=== PATIENT | female | born 1960 | race Caucasian/White ===

== ENCOUNTER 2016-11-01 19:12 | Emergency (ER) | payer MEDICARE, MEDICAID | END 2016-11-01 20:34 | disposition left against medical advice (07) | LOC: UCCORT 19:12 | DX: M54.2 Cervicalgia (principal); Z53.21 Procedure and treatment not carried out due to patient leaving prior to being seen by health care provider ==

== ENCOUNTER 2018-02-21 09:50 | Emergency (ER) | payer MEDICARE, MEDICAID ==
[2018-02-21 10:15] VITALS: BP 116/79
--- NOTE | 2018-02-21 10:42 | RAD ---
INDICATION: Foot hit by soccer ball COMPARISON: None TECHNIQUE: AP, lateral, and oblique views were obtained. FINDINGS: There is no acute bony change. There is osteophytes about the tarsometatarsal articulations. There are heel spurs. There is mild soft tissue swelling over the dorsum of the forefoot. IMPRESSION: MILD OSTEOARTHRITIC ARTHRITIS. NO ACUTE FRACTURE.
--- NOTE | 2018-02-21 10:53 | UC ---
Lower Extremity/Ankle HPI - HPI Summary HPI Summary: Pt c/o right foot pain, s/p two year old grandson bouncing soccer ball on dorsal aspect 5 days ago. Pt has hx of chronic sciatica - History of Current Complaint Chief Complaint: UCLowerExtremity Stated Complaint: RT FOOT COMP Time Seen by Provider: 02/21/18 10:13 Hx Obtained From: Patient ?: No Onset/Duration: Sudden Onset, Lasting Days, Still Present Severity Initially: Moderate Severity Currently: Severe Pain Intensity: 10 Aggravating Factor(s): Standing, Ambulation Alleviating Factor(s): Nothing Able to Bear Weight: Yes - minimal - Risk Factors Gout Risk Factors: Age Over 40 DVT Risk Factors: Negative Septic Arthritis Risk Factor: Negative - Allergies/Home Medications Allergies/Adverse Reactions: Allergies Allergy/AdvReac Type Severity Reaction Status Date / Time codeine Allergy Unknown Verified 02/21/18 10:13 Reaction Details Penicillins Allergy Rash Verified 02/21/18 10:13 Home Medications: Home Medications Acetaminophen [Pain Reliever] 1,000 mg PO Q6H 02/21/18 [History Confirmed ] Aspirin [Aspir-Low] 81 mg PO DAILY 02/21/18 [History Confirmed 02/21/18] PMH/Surg Hx/FS Hx/Imm Hx Previously Healthy: Yes - Surgical History Surgical History: Yes Surgery Procedure, Year, and Place: Cholecystectomy, 2013; Uterine Ablation; bilat eye, appy, lower lubar surg, neck, , tubaligation - Family History Known Family History: Positive: Cardiac Disease - Social History Occupation: Retired Lives: With Family Alcohol Use: Rare Substance Use Type: None Smoking Status (MU): Light Every Day Tobacco Smoker Type: Cigarettes Amount Used/How Often: 1/3 PPD Length of Time of Smoking/Using Tobacco: 5 Years Have You Smoked in the Last Year: Yes Household Exposure Type: Cigarettes Review of Systems Constitutional: Negative Skin: Negative Eyes: Negative ENT: Negative Respiratory: Negative Cardiovascular: Negative Gastrointestinal: Negative Genitourinary: Negative Motor: Negative Neurovascular: Other - "chronic neuritis" Musculoskeletal: Decreased ROM - right foot, Edema - right foot Neurological: Negative Psychological: Negative Is Patient Immunocompromised?: No All Other Systems Reviewed And Are Negative: Yes Physical Exam Triage Information Reviewed: Yes Appearance: Well-Appearing Vital Signs: Initial Vital Signs Temp 99.1 F 02/21/18 10:10 Pulse 88 02/21/18 10:10 Resp 18 02/21/18 10:10 BP 116/79 02/21/18 10:10 Pulse Ox 99 02/21/18 10:10 Vital Signs Reviewed: Yes Eye Exam: Normal ENT Exam: Normal Neck exam: Normal Respiratory Exam: Normal Respiratory: Positive: No respiratory distress Musculoskeletal Exam: Other Musculoskeletal: Positive: ROM Limited @ - right foot Neurological Exam: Normal Psychological Exam: Normal Skin Exam: Normal Diagnostics - Radiology No standard instances Radiology Interpretation Completed By: Radiologist - IMPRESSION: MILD OSTEOARTHRITIC ARTHRITIS. NO ACUTE FRACTURE. Lower Extremity Course/Dx - Differential Dx/Diagnosis Differential Diagnosis/HQI/PQRI: Contusion, Fracture (Closed), Sprain, Strain Provider Diagnoses: right foot pain. right foot contusion. right foot neuritis Discharge - Sign-Out/Discharge Documenting (check all that apply): Patient Departure - Discharge Plan Condition: Stable Disposition: HOME Prescriptions: predniSONE TAB* [Deltasone 10 MG TAB*] 30 mg PO DAILY #12 tab Patient Education Materials: Arthralgia (ED) Referrals: Cecilia Wilde MD [Primary Care Provider] - If Needed Julianna MADRID,Wili Abbott [Medical Doctor] - As Soon As Possible Additional Instructions: Please follow up with your PCP as needed and your neurologist as soon as possible. - Billing Disposition and Condition Condition: STABLE Disposition: Home
== END 2018-02-21 11:16 | disposition home or self-care (01) ==
LOC: UCCORT 09:50
DX: S90.31XA Contusion of right foot, initial encounter (principal); M79.2 Neuralgia and neuritis, unspecified; M54.30 Sciatica, unspecified side; M79.671 Pain in right foot; F17.210 Nicotine dependence, cigarettes, uncomplicated; Z79.82 Long term (current) use of aspirin; Z88.5 Allergy status to narcotic agent; Z88.0 Allergy status to penicillin; Y92.9 Unspecified place or not applicable; W20.8XXA Other cause of strike by thrown, projected or falling object, initial encounter
CPT/HCPCS: 99213; G0463

== ENCOUNTER 2018-06-11 14:06 | Emergency (ER) | payer MEDICAID, MEDICARE ==
[2018-06-11 14:30] VITALS: BP 112/62
--- NOTE | 2018-06-11 14:56 | UC ---
Skin Complaint HPI - HPI Summary HPI Summary: 57 year old female presents with sudden onset of painful, pruritic rash to her upper back. States it woke her from her sleep yesterday morning. Describes the pain as an intense burning. Worsens with any kind of touch including bra and shirt. She is noted some blisters that have opened and drained a clear drainage. Denies fever, chills, purulent drainage. Reports she did have chickenpox as a child. She also reports she is recovering for recent bronchitis. - History of Current Complaint Chief Complaint: UCSkin Time Seen by Provider: 06/11/18 14:35 Stated Complaint: SKIN COMPLAINT Hx Obtained From: Patient ?: No Onset/Duration: Sudden Onset, Lasting Days - 2 Current Severity: Severe Pain Intensity: 7 Location: Other - Upper back Character: Pruritus, Painful Aggravating Factor(s): Clothing, Touch Alleviating Factor(s): Nothing Associated Signs & Symptoms: Positive: Negative - Allergy/Home Medications Allergies/Adverse Reactions: Allergies Allergy/AdvReac Type Severity Reaction Status Date / Time codeine Allergy Unknown Verified 02/21/18 10:13 Reaction Details erythromycin base Allergy Rash Verified 06/11/18 14:26 Penicillins Allergy Rash Verified 02/21/18 10:13 Tetracyclines Allergy Rash Verified 06/11/18 14:26 Home Medications: Home Medications Gabapentin CAP(*) [Neurontin 300 CAP(*)] 600 mg PO TID 06/11/18 [History Confirmed 06/11/18] Naproxen [Naproxen 500 mg tab] 500 mg PO BID 06/11/18 [History Confirmed ] Review of Systems Constitutional: Negative Skin: Rash - See HPI Eyes: Negative ENT: Negative Respiratory: Negative Cardiovascular: Negative Gastrointestinal: Negative Is Patient Immunocompromised?: No All Other Systems Reviewed And Are Negative: Yes PMH/Surg Hx/FS Hx/Imm Hx - Additional Past Medical History Additional PMH: Chronic pain syndrome Previously Healthy: Yes Cardiovascular History: Hypertension Psychological History: Depression - Surgical History Surgical History: Yes Surgery Procedure, Year, and Place: Cholecystectomy, 2014; Uterine Ablation; bilat eye, appy, lower lubar surg, neck, , tubaligation - Family History Known Family History: Positive: None, Cardiac Disease - Social History Occupation: Employed Full-time Lives: With Family Alcohol Use: Rare Substance Use Type: None Smoking Status (MU): Light Every Day Tobacco Smoker Type: Cigarettes Amount Used/How Often: 1/3 PPD Length of Time of Smoking/Using Tobacco: 5 Years Have You Smoked in the Last Year: Yes Household Exposure Type: Cigarettes Physical Exam Triage Information Reviewed: Yes Appearance: Well-Appearing, No Pain Distress, Well-Nourished Vital Signs: Initial Vital Signs Temp 98.8 F 06/11/18 14:21 Pulse 81 06/11/18 14:21 Resp 19 06/11/18 14:21 BP 112/62 06/11/18 14:21 Pulse Ox 100 06/11/18 14:21 Neck: Positive: Supple, Nontender, No Lymphadenopathy Respiratory: Positive: Lungs clear, Normal breath sounds, No respiratory distress Cardiovascular: Positive: RRR, No Murmur Neurological: Positive: Alert Skin: Positive: rashes - Multiple discrete red raised vesicular lesions with crusting to central upper back. Lesions cross central line however are more prominent to right upper back. Very painful to touch. Course/Dx - Course Course Of Treatment: 57 year old female with onset of painful, pruritic rash to upper back 2 days ago. Exam reveals multiple discrete vesicual lesions with crusting to upper back that are prodominantly on the right side however do cross the central line. The appearance is atypical for shingles however her history and description of the pain present with the rash is very suggestive of a herpes zoster. Will treat with valacyclovir TID x 7 days. She is to follow up with her PCP within 5 days for recheck. Warning symptoms reviewed. Verbalizes understanding and agrees with POC. - Diagnoses Provider Diagnoses: Herpes zoster Discharge - Sign-Out/Discharge Documenting (check all that apply): Patient Departure All imaging exams completed and their final reports reviewed: No Studies - Discharge Plan Condition: Stable Disposition: HOME Prescriptions: Valacyclovir HCl [Valacyclovir] 1,000 mg PO TID #21 tablet Patient Education Materials: Shingles (ED) Referrals: Cecilia Wilde MD [Primary Care Provider] - 5 Days (Follow up within 5 days for recheck of symptoms) Additional Instructions: Your rash is a little atypical in presentation however the blistering, painful history you are providing makes this suspicious for shingles. Start valacyclovir 1 tab every 8 hours for 7 days. This is not a cure for shingles but is used to help minimize symptoms and shorten the duration of symptoms. It may still take several weeks for this to completely resolve. Although it is rare, be aware that in some cases the pain from shingles can persist even after the rash has subsided. Use your naproxen according to directions for pain. Follow up with your primary care provider within 5 days for recheck of symptoms. Seek immediate medical attention if you develop fever greater than 100.5 F, have redness that spreads, there is pus draining for the lesions, or any worsening of symptoms. - Billing Disposition and Condition Condition: STABLE Disposition: Home - Attestation Statements Provider Attestation: Per institutional requirements, I have reviewed the chart, however, I was not consulted specifically or made aware of this patient by the midlevel provider. I did not personally evaluate, interact with , or disposition this patient.
== END 2018-06-11 15:03 | disposition home or self-care (01) ==
LOC: UCCORT 14:06
DX: B02.9 Zoster without complications (principal); G89.4 Chronic pain syndrome; I10 Essential (primary) hypertension; F17.210 Nicotine dependence, cigarettes, uncomplicated; Z88.0 Allergy status to penicillin; Z88.1 Allergy status to other antibiotic agents; Z88.5 Allergy status to narcotic agent
CPT/HCPCS: 99212; G0463

== ENCOUNTER 2019-06-17 09:49 | Emergency (ER) | payer MEDICARE ==
[2019-06-17 10:29] VITALS: BP 126/77
--- NOTE | 2019-06-17 11:05 | UC ---
Throat Pain/Nasal Dionte HPI - HPI Summary HPI Summary: 58-year-old female presents with 2 day history of nasal congestion, sore throat , hoarse voice, bilateral ear fullness, and dry nonproductive cough. She is also reporting approximately 5 days of dysuria, vaginal itching, and some white vaginal discharge. States she completed her course of cephalexin approximately one week ago for an eye infection. Patient is a smoker. Denies fever, chills, dysphagia, chest pain, shortness of breath, abdominal pain, back or flank pain, nausea, vomiting, frequency, urgency, or hematuria. - History of Current Complaint Chief Complaint: UCRespiratory Stated Complaint: COUGH,CHEST CONGESTION,URINARY Time Seen by Provider: 06/17/19 10:53 Hx Obtained From: Patient Pain Intensity: 10 - Allergies/Home Medications Allergies/Adverse Reactions: Allergies Allergy/AdvReac Type Severity Reaction Status Date / Time codeine Allergy Unknown Verified 06/17/19 10:18 Reaction Details erythromycin base Allergy Rash Verified 06/17/19 10:18 Penicillins Allergy Rash Verified 06/17/19 10:18 Tetracyclines Allergy Rash Verified 06/17/19 10:18 Home Medications: Home Medications Cephalexin CAP* [Keflex 500 CAP*] 1 tab PO TID 06/17/19 [History Confirmed 06/17] Gabapentin CAP(*) [Neurontin 100 mg CAP(*)] 100 mg PO DAILY 06/17/19 [History Confirmed 06/17/19] Valacyclovir HCl [Valacyclovir] 1,000 mg PO TID PRN 06/17/19 [History Confirmed 06/17/19] PMH/Surg Hx/FS Hx/Imm Hx Cardiovascular History: Hypertension - Surgical History Surgical History: Yes Surgery Procedure, Year, and Place: Cholecystectomy, 2013; Uterine Ablation; bilat eye, appy, lower lubar surg, neck, , tubaligation - Family History Known Family History: Positive: Cardiac Disease - Social History Occupation: Disabled Lives: With Family Alcohol Use: Rare Substance Use Type: None Smoking Status (MU): Light Every Day Tobacco Smoker Type: Cigarettes Amount Used/How Often: 1/2 PPD Length of Time of Smoking/Using Tobacco: 5 Years Have You Smoked in the Last Year: Yes Household Exposure Type: Cigarettes Review of Systems All Other Systems Reviewed And Are Negative: Yes Physical Exam - Summary Physical Exam Summary: GENERAL APPEARANCE: Alert and cooperative adult female who appears to be in no acute distress. EYES: Conjunctiva clear. No drainage. EARS: External auditory canals and tympanic membranes clear, hearing grossly intact. NOSE: Mild-moderate nasal congestion. No nasal discharge. THROAT: Pharyngeal erythema with postnasal drip. No tonsilar inflammation, swelling, exudate, or lesions. Uvula midline. NECK: Neck supple, non-tender without lymphadenopathy. CARDIAC: Normal S1 and S2. No S3, S4 or murmurs. Rhythm is regular. There is no peripheral edema, cyanosis or pallor. Extremities are warm and well perfused. Capillary refill is less than 2 seconds. Peripheral pulses intact. LUNGS: Clear to auscultation without rales, rhonchi, wheezing or diminished breath sounds. Dry nonproductive cough. ABDOMEN: Positive bowel sounds. Soft, nondistended, nontender. No guarding or rebound. No masses or hepatosplenomegally. MUSKULOSKELETAL: ROM intact to all extremities. No joint erythema or tenderness. Normal muscular development. Normal gait. SKIN: Skin normal color, texture and turgor with no lesions or eruptions. Triage Information Reviewed: Yes Vital Signs: Initial Vital Signs Temp 98.6 F 06/17/19 10:23 Pulse 92 06/17/19 10:23 Resp 15 06/17/19 10:23 BP 126/77 06/17/19 10:23 Pulse Ox 100 06/17/19 10:23 Vital Signs Reviewed: Yes Throat Pain/Nasal Course/Dx - Course Course Of Treatment: 58-year-old female presents with 2 day history of nasal congestion, sore throat , hoarse voice, bilateral ear fullness, and dry nonproductive cough. She is also reporting approximately 5 days of dysuria, vaginal itching, and some white vaginal discharge. States she completed her course of cephalexin approximately one week ago for an eye infection. Patient is a smoker. Denies fever, chills, dysphagia, chest pain, shortness of breath, abdominal pain, back or flank pain, nausea, vomiting, frequency, urgency, or hematuria. Afebrile. Vital signs stable. Patient had mild to moderate nasal congestion, pharyngeal erythema with postnasal drip, no tonsillar swelling or exudate, no cervical lymphadenopathy, clear bilateral breath sounds, dry nonproductive cough, and otherwise unremarkable exam. [id number] urinalysis showed trace leukocytes but otherwise within normal limits. Urine culture pending. Reviewed results with the patient. I discussed with the patient that with her recent antibiotic use and reports a vaginal discharge I would recommend treating for a vaginal yeast infection with [id number] Monistat pending urine culture results to which she is agreeable. I have also recommended symptomatic treatment for a viral upper respiratory infection. She is to follow-up with her primary care provider in 3-5 days if symptoms are not improving. Anticipatory guidance and warning symptoms were reviewed the patient. Verbalizes understanding and agrees with plan of care. - Differential Dx/Diagnosis Differential Diagnosis/HQI/PQRI: Influenza, Sinusitis, URI Provider Diagnosis: Viral URI with cough, Dysuria Discharge ED - Sign-Out/Discharge Documenting (check all that apply): Patient Departure All imaging exams completed and their final reports reviewed: No Studies - Discharge Plan Condition: Stable Disposition: HOME Patient Education Materials: Upper Respiratory Infection (ED), Dysuria (ED) Referrals: Maryjane Teague MD [Primary Care Provider] - 3 Days (If no improvement in symptoms. ) Additional Instructions: Your history and exam are consistent with a viral upper respiratory infection. Viral infections do not respond to antibiotics and are limited to the treatment of symptoms. Viral infections typically run their course in 7-10 days. Drink plenty of fluids to avoid dehydration especially if you are running any fever. Use a saline rinse kit such as Neti Pot or NeilMed at least twice a day to help thin secretions and promote drainage of the sinuses. Use over the counter fluticasone (Flonase) nasal spray 2 sprays each nostril once daily. Take over the counter acetaminophen (Tylenol) or ibuprofen (Advil, Motrin) according to directions as needed for pain or fever. Use salt water gargles several times a day if you have a sore throat. You may also use Chloraseptic spray or Cepacol lonzenges according to directions which contain a numbing medication and can provide some temporary relief from your sore throat. The urine test performed in the clinic today showed a trace amount of white blood cells which could be suggestive of a urinary tract infection however with the recently being on antibiotics and having some discharge I would recommend treating with [id number] Monistat for a possible yeast infection while we await the results of the urine culture. Follow up with your primary care provider in 3-5 days if symptoms persist. Seek immediate medical attention in the emergency room if you have fever greater than 100.5 F despite taking acetaminophen or ibuprofen, have chest pain , difficulty breathing, are unable to swallow, or have any worsening of symptoms. - Billing Disposition and Condition Condition: STABLE Disposition: Home
== END 2019-06-17 11:41 | disposition home or self-care (01) ==
LOC: UCCORT 09:49
DX: J06.9 Acute upper respiratory infection, unspecified (principal); R30.0 Dysuria; I10 Essential (primary) hypertension; Z88.1 Allergy status to other antibiotic agents; Z88.5 Allergy status to narcotic agent; Z88.0 Allergy status to penicillin; F17.210 Nicotine dependence, cigarettes, uncomplicated
CPT/HCPCS: 81003; 87086; 99212; G0463

== ENCOUNTER 2019-08-05 16:05 | Emergency (ER) | payer MEDICARE ==
[2019-08-05 16:14] VITALS: BP 106/69
--- NOTE | 2019-08-05 17:00 | UC ---
Respiratory Complaint HPI - HPI Summary HPI Summary: Pt presents with c/o cough, malaise,chills, nasla congestion and diffuse, itchy rash X 4 days. - History of Current Complaint Chief Complaint: UCRespiratory Stated Complaint: RASH/CHEST CONGESTION Time Seen by Provider: 08/05/19 16:41 Hx Obtained From: Patient ?: No Onset/Duration: Sudden Onset, Lasting Days, Still Present, Worse Since - onset Timing: Constant Severity Initially: Mild Severity Currently: Severe Pain Intensity: 10 Character: Cough: Productive Aggravating Factors: Deep Breaths, Recumbent Position Alleviating Factors: Nothing Associated Signs And Symptoms: Positive: Fever, Chills, URI, Nasal Congestion - Risk Factors Pulmonary Embolism Risk Factors: Smoking Cardiac Risk Factors: Smoking Pseudomonas Risk Factors: Negative Tuberculosis Risk Factors: Smoking - Allergies/Home Medications Allergies/Adverse Reactions: Allergies Allergy/AdvReac Type Severity Reaction Status Date / Time codeine Allergy Unknown Verified 08/05/19 16:13 Reaction Details erythromycin base Allergy Rash Verified 08/05/19 16:13 Penicillins Allergy Rash Verified 08/05/19 16:13 Tetracyclines Allergy Rash Verified 08/05/19 16:13 Home Medications: Home Medications diPHENhydraMINE PO* [Benadryl PO 25 MG TAB*] 25 mg PO Q6H PRN 08/05/19 [History Confirmed 08/05/19] PMH/Surg Hx/FS Hx/Imm Hx Previously Healthy: Yes Cardiovascular History: Cardiac Disease Respiratory History: Other - pt is a heavy every day smoker - Surgical History Surgical History: Yes Surgery Procedure, Year, and Place: Cholecystectomy, 2013; Uterine Ablation; bilat eye, appy, lower lubar surg, neck, , tubaligation - Family History Known Family History: Positive: Cardiac Disease - Social History Occupation: Disabled Lives: With Family Alcohol Use: Rare Substance Use Type: None Smoking Status (MU): Heavy Every Day Tobacco Smoker Type: Cigarettes Amount Used/How Often: 1/2 PPD Length of Time of Smoking/Using Tobacco: 10 Years Have You Smoked in the Last Year: Yes Household Exposure Type: Cigarettes Review of Systems All Other Systems Reviewed And Are Negative: Yes Constitutional: Positive: Fever, Chills, Fatigue Skin: Positive: Rash Eyes: Positive: Negative ENT: Positive: Sinus Congestion Respiratory: Positive: Shortness Of Breath, Cough Cardiovascular: Positive: Negative Gastrointestinal: Positive: Negative Genitourinary: Positive: Negative Motor: Positive: Negative Neurovascular: Positive: Negative Musculoskeletal: Positive: Myalgia Neurological: Positive: Headache Psychological: Positive: Negative Is Patient Immunocompromised?: No Physical Exam Triage Information Reviewed: Yes Appearance: Ill-Appearing Vital Signs: Initial Vital Signs Temp 98.4 F 08/05/19 16:07 Pulse 92 08/05/19 16:07 Resp 20 08/05/19 16:07 BP 106/69 08/05/19 16:07 Pulse Ox 99 08/05/19 16:07 Vital Signs Reviewed: Yes Eye Exam: Normal ENT: Positive: Nasal congestion Dental Exam: Normal Neck exam: Normal Respiratory: Positive: Decreased breath sounds, Wheezing Cardiovascular Exam: Normal Musculoskeletal Exam: Normal Neurological Exam: Normal Psychological Exam: Normal Skin: Positive: Rashes - diffuse, erythematous, macular papular rash Respiratory Course/Dx - Differential Dx/Diagnosis Differential Diagnosis/HQI/PQRI: Bronchitis, Exacerbation Of COPD, Influenza Provider Diagnosis: Bronchitis, COPD exacerbation, Rash, Itchy skin Discharge ED - Sign-Out/Discharge Documenting (check all that apply): Patient Departure All imaging exams completed and their final reports reviewed: No Studies - Discharge Plan Condition: Stable Disposition: HOME Prescriptions: Benzonatate CAP* [Tessalon 100 MG CAP*] 100 mg PO Q8H PRN #30 cap PRN Reason: Cough Cetirizine* [ZyrTEC 10 MG TAB*] 10 mg PO DAILY #10 tab predniSONE TAB* [Deltasone 20 MG TAB*] 60 mg PO DAILY #12 tab Sulfamethox/Trimethoprim DS* [Bactrim DS 800/160 TAB*] 1 tab PO Q12H #14 tab Patient Education Materials: Acute Bronchitis (ED), Dermatitis (ED) Referrals: Maryjane Tegaue MD [Primary Care Provider] - If Needed - Billing Disposition and Condition Condition: STABLE Disposition: Home
== END 2019-08-05 17:08 | disposition home or self-care (01) ==
LOC: UCCORT 16:05
DX: J44.1 Chronic obstructive pulmonary disease with (acute) exacerbation (principal); R21 Rash and other nonspecific skin eruption; L29.9 Pruritus, unspecified; F17.210 Nicotine dependence, cigarettes, uncomplicated; F17.200 Nicotine dependence, unspecified, uncomplicated; Z88.0 Allergy status to penicillin; Z88.1 Allergy status to other antibiotic agents; Z88.5 Allergy status to narcotic agent
CPT/HCPCS: 99212; G0463